=== PATIENT | male | born 1975 | race Caucasian/White ===

== ENCOUNTER → 2017-08-22 | Outpatient (CLI) | payer BC ==
[~2017-08-22] MED LIST: ACYLOVIR; CEP500 PO; FLUT16SP20 NS; IBUP-1455 PO; KET10 PO; LORA-799 PO; OXYC1TAB54 PO
--- NOTE | 2017-08-22 10:48 | RADIOLOGY IMAGING REPORT ---
FACILITY: [facility] PATIENT NAME: Luis Nash : 1975 MR: [id number] V: [id number] EXAM DATE: ORDERING PHYSICIAN: ELISEO HUANG TECHNOLOGIST: Location: [facility] - [place], [place] Patient: Luis Nash : 1975 Visit/Account:[id number] Date of Sevice: 08/22/2017 Technique: STERNUM HISTORY: Mass on sternum Comparison studies: None FINDINGS: There is no acute fracture. The alignment of the sternum is maintained. There is soft tis bull swelling ventral to the sternal body. IMPRESSION: 1. Soft tissue swelling ventral to the sternal body with no underlying osseous process. If clinical concern remains additional imaging such as MRI could be obtained characterization. Report Dictated By: Ricardo Hoff DO at 08/22/2017 10:36 AM Report E-Signed By: Ricardo Hoff DO at 08/22/2017 10:45 AM WSN:[id number]
== END ==
LOC: RAD 09:42
PROVIDERS: ATTEND Nurse Practitioner Family
DX: R22.2 Localized swelling, mass and lump, trunk (principal)
CPT/HCPCS: 71120